=== PATIENT | male | born 1985 | race Caucasian/White ===

== ENCOUNTER 2017-09-20 17:47 | Emergency (ER) | payer MEDICAID ==
[~2017-09-20] VITALS: Ht 182.9 cm; Wt 104.0 kg
[2017-09-20 18:40] LABS: BASOPHILS % (AUTO) 0.4 % (0-1); EOSINOPHILS # (AUTO) 0.2 X10'3 (0-0.9); EOSINOPHILS % (AUTO) 2.1 % (0-6); HEMOGLOBIN 16.9 g/dl (14.0-17.9); LYMPHOCYTES # (AUTO) 2.6 X10'3 (1.1-4.8); LYMPHOCYTES % (AUTO) 23.8 % (21-51); MEAN CORPUSCULAR HEMOGLOBIN 30.9 PG (27.0-31.0); MEAN CORPUSCULAR HGB CONC 35.2 % (33.0-36.5); MEAN CORPUSCULAR VOLUME 87.7 FL (78-98); MEAN PLATELET VOLUME 7.2 FL (7.4-10.4); MONOCYTES # (AUTO) 0.5 X10'3 (0-0.9); MONOCYTES % (AUTO) 4.8 % (2-12); NEUTROPHILS # (AUTO) 7.4 X10'3 (1.8-7.7); NEUTROPHILS % (AUTO) 68.9 % (42-75); PLATELET COUNT 220 X10'3 (140-440); RED BLOOD COUNT 5.47 X10'6 (4.70-6.10); WHITE BLOOD COUNT 10.8 X10'3 (4.5-11.0)
[2017-09-20 18:54] LABS: ALANINE AMINOTRANSFERASE 78 U/L (12-78); ALBUMIN 4.5 G/DL (3.4-5.0); ASPARTATE AMINO TRANSFERASE 25 U/L (10-37); BILIRUBIN,TOTAL 1.1 MG/DL (0.1-1.0); BLOOD UREA NITROGEN 16 MG/DL (7-18); BUN/CREATININE RATIO 18.8 (5.4-32.0); CALCIUM 9.4 MG/DL (8.5-10.1); CHLORIDE 100 MMOL/L (99-107); CREATININE 0.85 MG/DL (0.60-1.10); GLUCOSE 120 MG/DL (70-104); POTASSIUM 3.7 MMOL/L (3.5-5.1); TOTAL CARBON DIOXIDE 28.6 MMOL/L (24-32); TOTAL PROTEIN 8.8 G/DL (6.4-8.2); eGFR > 90 ML/MIN
[2017-09-20 18:59] LABS: ANION GAP 10 (8-16); SODIUM 139 MMOL/L (135-145)
[2017-09-20] MEDS ORDERED: AZIT-57 PO (20:08)
[2017-09-20] MEDS ORDERED: ALBU8HFA PO (20:08)
[2017-09-20 20:31] LABS: ALKALINE PHOSPHATASE 122 IU/L (46-116)
[2017-09-20 20:57] VITALS: BP 171/113
== END 2017-09-20 20:58 | disposition home or self-care (01) ==
LOC: ER 17:48
DX: J20.9 Acute bronchitis, unspecified (principal); F17.200 Nicotine dependence, unspecified, uncomplicated; F12.10 Cannabis abuse, uncomplicated
CPT/HCPCS: 36415; 71046; 80053; 83605; 83880; 85025; 87040; 99285

== ENCOUNTER 2018-01-25 23:09 | Emergency (ER) | payer MEDICAID ==
[~2018-01-25] VITALS: Ht 182.9 cm; Wt 94.9 kg
[2018-01-25 23:19] VITALS: BP 155/99
[2018-01-25] MEDS ORDERED: predniSONE 20 mg tablet PO ONE (23:50)
[2018-01-25] MEDS ORDERED: ipratropium/albuterol 3ml nebule NEB ONE (23:50)
[2018-01-25] MEDS ORDERED: albuterol 2.5 MG/3 ML nebule NEB ONE (23:50)
[2018-01-26] MEDS ORDERED: ALBU18HF2 INH (00:04)
[2018-01-26] MEDS ORDERED: PRED20TA PO (00:04)
== END 2018-01-26 00:46 | disposition home or self-care (01) ==
LOC: ER 23:09
DX: J45.901 Unspecified asthma with (acute) exacerbation (principal); F17.200 Nicotine dependence, unspecified, uncomplicated; F12.90 Cannabis use, unspecified, uncomplicated; Z79.899 Other long term (current) drug therapy
CPT/HCPCS: 94640; 94760; 99284; J7512

== ENCOUNTER 2018-06-25 01:13 | Emergency (ER) | payer MEDICAID ==
[~2018-06-25] VITALS: Ht 182.9 cm; Wt 113.6 kg
[~2018-06-25 01:13] MED LIST: ALBU18HF2 INH
[2018-06-25] MEDS ORDERED: ALBU6.7H INH (04:19)
[2018-06-25] MEDS ORDERED: PRED20TA PO (04:19)
[2018-06-25] MEDS ORDERED: albuterol 2.5 MG/3 ML nebule CONTNEB PRN (04:20)
[2018-06-25] MEDS ORDERED: dexamethasone 4mg tablet PO ONE (04:20)
[2018-06-25 05:16] VITALS: BP 155/89
== END 2018-06-25 05:18 | disposition home or self-care (01) ==
LOC: ER 01:14
DX: J98.01 Acute bronchospasm (principal); F12.10 Cannabis abuse, uncomplicated; F17.210 Nicotine dependence, cigarettes, uncomplicated
CPT/HCPCS: 94640; 94760; 99283; J8540